=== PATIENT | female | born 1990 | race Caucasian/White ===

== ENCOUNTER 2018-06-05 13:52 | Emergency (ER) | payer OTHER ==
[~2018-06-05] VITALS: Ht 149.9 cm; Wt 72.6 kg
[2018-06-05] MEDS ORDERED: OBSTETRIX DHA1 EACH PO (13:59)
== END 2018-06-05 20:05 | disposition home or self-care (01) ==
LOC: ER 13:52
DX: O20.0 Threatened abortion (principal)

== ENCOUNTER 2018-06-10 05:52 | Emergency (ER) | payer OTHER ==
[~2018-06-10] VITALS: Ht 149.9 cm; Wt 72.6 kg
[~2018-06-10 05:52] MED LIST: OBSTETRIX DHA1 EACH PO
== END 2018-06-10 12:01 | disposition home or self-care (01) ==
LOC: ER 05:52
DX: O20.0 Threatened abortion (principal)

== ENCOUNTER 2024-10-24 14:23 | Outpatient (CLI) | payer OTHER | END 2024-10-24 14:42 | disposition home or self-care (01) | LOC: PRENATAL 14:23 | PROVIDERS: ATTEND Obstetrics & Gynecology Maternal & Fetal Medicine | DX: O44.00 Complete placenta previa NOS or without hemorrhage, unspecified trimester (principal); O34.219 Maternal care for unspecified type scar from previous cesarean delivery; O34.40 Maternal care for other abnormalities of cervix, unspecified trimester; O09.529 Supervision of elderly multigravida, unspecified trimester; Z3A.22 22 weeks gestation of pregnancy ==

== ENCOUNTER 2024-12-06 10:06 | Outpatient (CLI) | payer OTHER | END 2024-12-06 10:07 | disposition home or self-care (01) | LOC: PRENATAL 10:06 | PROVIDERS: ATTEND Obstetrics & Gynecology Maternal & Fetal Medicine | DX: O26.849 Uterine size-date discrepancy, unspecified trimester (principal); O36.8130 Decreased fetal movements, third trimester, not applicable or unspecified; O34.219 Maternal care for unspecified type scar from previous cesarean delivery; O34.40 Maternal care for other abnormalities of cervix, unspecified trimester; O99.019 Anemia complicating pregnancy, unspecified trimester; Z3A.28 28 weeks gestation of pregnancy ==